=== PATIENT | female | born 1995 | race Caucasian/White ===

== ENCOUNTER 2023-02-03 13:53 | Emergency (ER) | payer BC ==
[2023-02-03] MEDS ORDERED: Acetaminophen 500 MG TAB ONE (15:35)
[2023-02-03] MEDS ORDERED: Ketorolac Tromethamine 30 MG/ML VIAL ONE (15:35)
== END 2023-02-03 15:59 | disposition home or self-care (01) ==
LOC: ERS 13:53
DX: K62.89 Other specified diseases of anus and rectum (principal)
CPT/HCPCS: 96372; 99283; J1885